=== PATIENT | female | born 1980 | race Caucasian/White ===

== ENCOUNTER 2023-08-15 10:26 | Outpatient (CLI) | payer OTHER ==
[2023-08-15 13:00] LABS: Anion Gap 17 mmol/L (10-20); BUN (Urea Nitrogen) 12 mg/dL (7.0-18.7); Calc. Creatinine Clearance 0 mL/min (70-130); Calcium 10.2 mg/dL (7.8-10.44); Carbon Dioxide 21 mmol/L (22-29); Chloride 104 mmol/L (98-107); Estimated GFR 111; Glucose 94 mg/dL (70-105); Potassium 3.7 mmol/L (3.5-5.1); Sodium 138 mmol/L (136-145)
[2023-08-15 13:12] LABS: BHCG - Serum Negative (NEGATIVE); Pregs Control Bar Appear? YES (CONTROL BAR)
[2023-08-15 13:13] LABS: Pregs Control Background? CLEAR/WHITE (CLR/WHITE)
== END 2023-08-15 10:27 | disposition home or self-care (01) ==
LOC: CSHLAB 10:26
PROVIDERS: ATTEND Surgery
DX: Z01.812 Encounter for preprocedural laboratory examination (principal); N64.52 Nipple discharge
CPT/HCPCS: 80048; 84703

== ENCOUNTER 2023-08-16 06:09 | Day surgery (SDC) | payer OTHER ==
[2023-08-14 12:07] VITALS: BMI 30.7
[2023-08-16] MEDS ORDERED: fentaNYL 50 mcg/mL 1 mL Vial ONE ×2 (06:38→07:53)
[2023-08-16] MEDS ORDERED: Midazolam HCl 2 mg/2 ml Vial ONE (06:38)
[2023-08-16] MEDS ORDERED: PROPOFOL 20 ML ONE (06:38)
[2023-08-16] MEDS ORDERED: Dexamethasone 4 mg/ml Vial ONE (06:40)
[2023-08-16] MEDS ORDERED: Lidocaine 1% PF 5 ML VIAL ONE (06:40)
[2023-08-16] MEDS ORDERED: Ondansetron PF 4 MG/2 ML Vial ONE (06:40)
[2023-08-16] MEDS ORDERED: EPINEPHrine 1 MG/ML VIAL ONE (06:41)
[2023-08-16] MEDS ORDERED: Bupivacaine PF 0.5% 30 ML VIAL ONE (06:41)
[2023-08-16] MEDS ORDERED: CEFAZOLIN 2 GM VIAL ONE (07:17)
[2023-08-16] MEDS ORDERED: Acetaminophen 325 MG TAB PO PRN (08:29)
[2023-08-16] MEDS ORDERED: HYDROcodone/Acetaminophen 5/325 mg Tablet PO PRN (08:29)
== END 2023-08-16 10:10 | disposition home or self-care (01) ==
LOC: CSHSDC 06:09
PROVIDERS: ATTEND Surgery
PROC: 0HBW0ZZ Excision of Right Nipple, Open Approach (ICD-10-PCS; principal; 2023-08-16)
DX: D24.1 Benign neoplasm of right breast (principal); I10 Essential (primary) hypertension; E03.9 Hypothyroidism, unspecified; J45.909 Unspecified asthma, uncomplicated; Z88.6 Allergy status to analgesic agent; Z87.891 Personal history of nicotine dependence; Z90.49 Acquired absence of other specified parts of digestive tract; Z79.890 Hormone replacement therapy; Z79.899 Other long term (current) drug therapy
CPT/HCPCS: 88305; 88341; 88342; J0171; J0665; J1100; J2250; J2405; J2704; J3010; Q9968